=== PATIENT | female | born 1985 | race Caucasian/White ===

== ENCOUNTER 2019-10-01 21:50 | Observation (INO) | payer OTHER ==
[~2019-10-01] VITALS: Ht 154 cm; Wt 60.8 kg
[2019-10-02] MEDS: RINGERS SOLUTION,LACTATED 1,000 ML IV SCH ×4 (00:15→12:23)
[2019-10-02] MEDS: NIFEdipine 10 MG CAPSULE PO SCH ×3 (00:19→13:36)
[2019-10-02] MEDS ORDERED: BETAMETHASONE SOLUSPAN 6 MG/ML 5 ML VIAL IM ONE ×2 (08:00→19:00)
[2019-10-03] MEDS ORDERED: NIFEdipine 10 MG CAPSULE PO PRN
== END 2019-10-02 19:50 | disposition home or self-care (01) ==
LOC: 4S 21:50
PROVIDERS: ADMIT Obstetrics & Gynecology; ATTEND Obstetrics & Gynecology
DX: O32.1XX1 Maternal care for breech presentation, fetus 1 (principal); O46.93 Antepartum hemorrhage, unspecified, third trimester; O62.9 Abnormality of forces of labor, unspecified; O09.523 Supervision of elderly multigravida, third trimester; Z3A.37 37 weeks gestation of pregnancy
CPT/HCPCS: 36415; 59025; 76811; 81001; 89060; 96372; G0378 ×2; J0702; J7120 ×2

== ENCOUNTER 2019-10-23 00:14 | Observation (INO) | payer OTHER ==
[~2019-10-23] VITALS: Ht 154.9 cm; Wt 57.2 kg
[2019-10-23 03:00] LABS: BASOPHILS % (AUTO) 0.5 % (0.0-2.0); EOSINOPHILS % (AUTO) 0.2 % (1.0-6.0); HEMATOCRIT 34.4 % (36-46); HEMOGLOBIN 11.4 g/dL (12.0-16.0); LYMPHOCYTES # (AUTO) 1.4 K/uL (1.0-4.8); LYMPHOCYTES % (AUTO) 14.5 % (22.0-44.0); MEAN CORPUSCULAR HEMOGLOBIN 27.7 pg (26.0-34.0); MEAN CORPUSCULAR HGB CONC 33.1 G/dL (31.0-37.0); MEAN CORPUSCULAR VOLUME 84 fL (80-100); MONOCYTES # (AUTO) 0.3 K/uL (0.1-1.0); MONOCYTES % (AUTO) 2.5 % (2.0-9.0); NEUTROPHILS # (AUTO) 8.2 K/uL (1.8-7.7); NEUTROPHILS % (AUTO) 82.3 % (40.0-70.0); PLATELET COUNT (AUTO)-OB 210 K/uL (150-450); RED BLOOD CELL COUNT(AUTO) 4.13 MIL/uL (4.00-5.20); RED CELL DISTRIBUTION WIDTH 14.1 % (11.5-14.5)
[2019-10-23 03:09] LABS: ANION GAP 13 mmol/L (8-16); CALCIUM, TOTAL 8.5 mg/dL (8.8-10.5); CARBON DIOXIDE 21 mmol/L (22-29); CHLORIDE 103 mmol/L (98-107); CREATININE 0.75 mg/dL (0.60-1.30); GLOMERULAR FILTR. RATE CALC > 60 mL/min (>60); GLUCOSE,RANDOM 61 mg/dL (70-110); POTASSIUM 3.9 mmol/L (3.5-5.1); SODIUM SERUM 137 mmol/L (136-145); UREA NITROGEN, BLOOD 9 mg/dL (7-18)
[2019-10-23 03:15] LABS: ALANINE AMINOTRANSFERASE 88 U/L (12-78); ALBUMIN 2.1 g/dL (3.4-5.0); ALKALINE PHOSPHATASE 122 U/L (46-116); ASPARTATE AMINOTRANSFERASE 60 U/L (15-37); BILIRUBIN,TOTAL 0.2 mg/dL (0.1-1.0); TOTAL PROTEIN, SERUM 5.9 g/dL (6.4-8.2); URIC ACID 5.6 mg/dL (2.6-7.2)
[2019-10-23] MEDS: RINGERS SOLUTION,LACTATED 1,000 ML IV SCH ×2 (03:40→03:51)
[2019-10-23] MEDS ORDERED: Nifedipine PO (05:16)
[2019-10-23 05:17] VITALS: BP 138/88
[2019-10-23] MEDS ORDERED: PREN-68 PO (05:25)
== END 2019-10-23 07:00 | disposition home or self-care (01) ==
LOC: 4S 00:14
PROVIDERS: ADMIT Obstetrics & Gynecology; ATTEND Obstetrics & Gynecology
DX: O26.893 Other specified pregnancy related conditions, third trimester (principal); R03.0 Elevated blood-pressure reading, without diagnosis of hypertension; O24.419 Gestational diabetes mellitus in pregnancy, unspecified control; Z3A.37 37 weeks gestation of pregnancy; Z87.891 Personal history of nicotine dependence
CPT/HCPCS: 36415; 59025; 80053; 81001; 84550; 85025; G0378; J7120

== ENCOUNTER 2019-10-26 12:39 | Inpatient (IN) | payer OTHER ==
[~2019-10-26] VITALS: Ht 154 cm; Wt 58.1 kg
[~2019-10-26 12:39] MED LIST: Nifedipine PO; PREN-68 PO; RINGERS SOLUTION,LACTATED 1,000 ML IV ONE
[2019-10-26] MEDS ORDERED: NIFE10 PO (12:42)
[2019-10-26] MEDS ORDERED: CITRIC ACID/SODIUM CITRATE 30 ML SOLUTION UDCUP PO ONE (12:45)
[2019-10-26] MEDS ORDERED: METOCLOPRAMIDE HCL 5 MG/ML 2 ML VIAL IVP ONE (12:45)
[2019-10-26 13:14] VITALS: BP 153/97
[2019-10-26] MEDS ORDERED: FentaNYL CITRATE-PF 100 MCG/2 ML VIAL ONE (13:34)
[2019-10-26] MEDS ORDERED: MORPHINE SULFATE/PF 1 MG/ML 10 ML AMP ONE (13:34)
[2019-10-26] MEDS ORDERED: ACETAMINOPHEN 1000 MG/ISO-OSM 100 ML IV ONE (13:36)
[2019-10-26] MEDS ORDERED: BUPIVACAINE HCL/DEX-WATER/PF 0.75% 2 ML AMP ONE (13:36)
[2019-10-26] MEDS ORDERED: ONDANSETRON HCL 4 MG/2 ML VIAL IVP PRN ×2 (13:45→14:00)
[2019-10-26] MEDS ORDERED: FentaNYL CITRATE-PF 100 MCG/2 ML VIAL IVP PRN ×2 (13:45→14:00)
[2019-10-26] MEDS ORDERED: DiphenhydrAMINE HCL 50 MG/ML VIAL IVP PRN (13:45)
[2019-10-26] MEDS ORDERED: MORPHINE SULFATE 10 MG/ML SYRINGE IVP PRN (13:45)
[2019-10-26] MEDS ORDERED: NALBUPHINE HCL 10 MG/ML VIAL IVP PRN ×2 (13:45)
[2019-10-26] MEDS ORDERED: NALOXONE HCL 0.4 MG/ML VIAL IVP PRN (13:45)
[2019-10-26 13:54] LABS: BASOPHILS % (AUTO) 0.4 % (0.0-2.0); EOSINOPHILS % (AUTO) 0.2 % (1.0-6.0); HEMATOCRIT 39.9 % (36-46); HEMOGLOBIN 12.9 g/dL (12.0-16.0); LYMPHOCYTES # (AUTO) 1.4 K/uL (1.0-4.8); LYMPHOCYTES % (AUTO) 13.8 % (22.0-44.0); MEAN CORPUSCULAR HGB CONC 32.3 G/dL (31.0-37.0); MEAN CORPUSCULAR VOLUME 84 fL (80-100); MONOCYTES # (AUTO) 0.3 K/uL (0.1-1.0); MONOCYTES % (AUTO) 2.8 % (2.0-9.0); NEUTROPHILS # (AUTO) 8.4 K/uL (1.8-7.7); NEUTROPHILS % (AUTO) 82.8 % (40.0-70.0); PLATELET COUNT (AUTO) 303 K/uL (150-450); RED BLOOD CELL COUNT(AUTO) 4.78 MIL/uL (4.00-5.20); RED CELL DISTRIBUTION WIDTH 14.2 % (11.5-14.5)
[2019-10-26 14:03] LABS: ANION GAP 9 mmol/L (8-16); CARBON DIOXIDE 26 mmol/L (22-29); CHLORIDE 101 mmol/L (98-107); CREATININE 0.93 mg/dL (0.60-1.30); GLOMERULAR FILTR. RATE CALC > 60 mL/min (>60); GLUCOSE,RANDOM 71 mg/dL (70-110); SODIUM SERUM 136 mmol/L (136-145); UREA NITROGEN, BLOOD 12 mg/dL (7-18)
[2019-10-26 14:08] LABS: ALANINE AMINOTRANSFERASE 121 U/L (12-78); ALBUMIN 2.3 g/dL (3.4-5.0); ALKALINE PHOSPHATASE 153 U/L (46-116); ASPARTATE AMINOTRANSFERASE 76 U/L (15-37); BILIRUBIN,TOTAL 0.2 mg/dL (0.1-1.0); TOTAL PROTEIN, SERUM 6.6 g/dL (6.4-8.2); URIC ACID 6.2 mg/dL (2.6-7.2)
[2019-10-26 14:22] LABS: CALCIUM, TOTAL 9.2 mg/dL (8.8-10.5)
[2019-10-26] MEDS ORDERED: INFLUENZA VIRUS VACCINE QVS 2019-20 (3YR+)/PF 60 MCG/0.5 ML SYRINGE IM ONE (14:45)
[2019-10-26] MEDS ORDERED: TRANEXAMIC ACID 1,000 MG in DEXTROSE 5%-WATER 50 ML IV ONE (15:00)
[2019-10-26] MEDS ORDERED: ACETAMINOPHEN/CODEINE 300-30 MG TABLET PO PRN ×2 (15:15)
[2019-10-26] MEDS ORDERED: LANOLIN 7 GM OINTMENT TP PRN (15:15)
[2019-10-26 15:24] LABS: APPEARANCE,URINE CLEAR (CLEAR); BILIRUBIN,URINE NEGATIVE (NEGATIVE); GLUCOSE, URINE (UA) NEGATIVE (NEGATIVE); KETONES,URINE NEGATIVE (NEGATIVE); LEUKOCYTE ESTERASE ,URINE TRACE (NEGATIVE); NITRATE,URINE NEGATIVE (NEGATIVE); OCCULT BLOOD,URINE NEGATIVE (NEGATIVE); PH,URINE 7.5 (5.0-8.0); PROTEIN,URINE NEGATIVE (NEGATIVE); UROBILINOGEN,URINE 0.2 mg/dL (<=1.0)
[2019-10-26 15:25] LABS: CREATININE,URINE RANDOM 25.3 mg/dL (30.0-125.0)
[2019-10-26 15:47] LABS: BACTERIA,URINE Few /HPF (None Seen); RBC,URINE None Seen /HPF (0-2); SQUAMOUS EPITHELIAL CELL,UR Few /LPF (None Seen); WBC,URINE 0-2 /HPF (0-5)
[2019-10-26] MEDS: DEXTROSE 5%-0.45% SODIUM CHL 1,000 ML IV SCH (16:49)
[2019-10-26] MEDS ORDERED: MAGNESIUM SULFATE 500 ML IV ONE (17:45)
[2019-10-26] MEDS ORDERED: CALCIUM GLUCONATE 100 MG/ML 10 ML IVP PRN ×2 (17:45→19:45)
[2019-10-26 19:45] LABS: BASOPHILS % (AUTO) 0.3 % (0.0-2.0); EOSINOPHILS % (AUTO) 0 % (1.0-6.0); HEMATOCRIT 33.7 % (36-46); HEMOGLOBIN 10.9 g/dL (12.0-16.0); LYMPHOCYTES # (AUTO) 0.7 K/uL (1.0-4.8); LYMPHOCYTES % (AUTO) 3.5 % (22.0-44.0); MEAN CORPUSCULAR HGB CONC 32.4 G/dL (31.0-37.0); MEAN CORPUSCULAR VOLUME 83 fL (80-100); MONOCYTES # (AUTO) 0.5 K/uL (0.1-1.0); MONOCYTES % (AUTO) 2.6 % (2.0-9.0); NEUTROPHILS # (AUTO) 19.1 K/uL (1.8-7.7); NEUTROPHILS % (AUTO) 93.6 % (40.0-70.0); PLATELET COUNT (AUTO)-OB 270 K/uL (150-450); RED BLOOD CELL COUNT(AUTO) 4.04 MIL/uL (4.00-5.20); RED CELL DISTRIBUTION WIDTH 14.9 % (11.5-14.5)
[2019-10-26] MEDS ORDERED: OXYGEN THERAPY IH SCH ×2 (20:00)
[2019-10-26] MEDS: KETOROLAC TROMETHAMINE 30 MG/ML VIAL IVP SCH (20:11)
[2019-10-26] MEDS: ACETAMINOPHEN 1000 MG/ISO-OSM 100 ML IV SCH (20:17)
[2019-10-26] MEDS: MAGNESIUM HYDROXIDE SUSPENSION 30 ML UDCUP PO SCH (21:00)
[2019-10-27] MEDS: DEXTROSE 5%-0.45% SODIUM CHL 1,000 ML IV SCH ×2 (00:25→12:14)
[2019-10-27] MEDS: KETOROLAC TROMETHAMINE 30 MG/ML VIAL IVP SCH (01:35)
[2019-10-27] MEDS: ACETAMINOPHEN 1000 MG/ISO-OSM 100 ML IV SCH (01:37)
[2019-10-27] MEDS: NIFEdipine 10 MG CAPSULE PO PRN ×2 (01:46→15:01)
[2019-10-27] MEDS ORDERED: MAGNESIUM SULFATE 500 ML IV SCH (06:00)
[2019-10-27] MEDS ORDERED: EPHEDrine SULFATE 50 MG/ML VIAL IM ONE (06:21)
[2019-10-27] MEDS ORDERED: ONDANSETRON HCL 4 MG/2 ML VIAL IVP ONE (06:21)
[2019-10-27] MEDS ORDERED: DEXAMETHASONE SOD PHOS 4 MG/ML VIAL IVP ONE (06:21)
[2019-10-27] MEDS ORDERED: 0.9% SODIUM CHLORIDE 10 ML VIAL IVP ONE (06:21)
[2019-10-27] MEDS ORDERED: IBUPROFEN 800 MG TABLET PO SCH (07:00)
[2019-10-27 08:07] LABS: BASOPHILS % (AUTO) 0.2 % (0.0-2.0); EOSINOPHILS % (AUTO) 0 % (1.0-6.0); HEMATOCRIT 31.4 % (36-46); HEMOGLOBIN 10.4 g/dL (12.0-16.0); LYMPHOCYTES # (AUTO) 1.5 K/uL (1.0-4.8); LYMPHOCYTES % (AUTO) 6.8 % (22.0-44.0); MEAN CORPUSCULAR HEMOGLOBIN 27.4 pg (26.0-34.0); MEAN CORPUSCULAR HGB CONC 33.1 G/dL (31.0-37.0); MEAN CORPUSCULAR VOLUME 83 fL (80-100); MONOCYTES # (AUTO) 0.8 K/uL (0.1-1.0); MONOCYTES % (AUTO) 3.5 % (2.0-9.0); NEUTROPHILS # (AUTO) 19.8 K/uL (1.8-7.7); PLATELET COUNT (AUTO)-OB 250 K/uL (150-450); RED BLOOD CELL COUNT(AUTO) 3.78 MIL/uL (4.00-5.20); RED CELL DISTRIBUTION WIDTH 14.6 % (11.5-14.5)
[2019-10-27 08:12] LABS: NEUTROPHILS % (AUTO) 89.5 % (40.0-70.0)
[2019-10-27] MEDS: MAGNESIUM HYDROXIDE SUSPENSION 30 ML UDCUP PO SCH ×2 (09:00→22:07)
[2019-10-27] MEDS: IBUPROFEN 600 MG TABLET PO SCH ×2 (13:15→20:25)
[2019-10-28] MEDS: IBUPROFEN 600 MG TABLET PO SCH ×4 (03:25→21:13)
[2019-10-28] MEDS: MAGNESIUM HYDROXIDE SUSPENSION 30 ML UDCUP PO SCH ×2 (09:25→21:11)
[2019-10-28] MEDS: NIFEdipine 10 MG CAPSULE PO PRN (09:55)
[2019-10-28] MEDS ORDERED: SENNA/DOCUSATE SODIUM 8.6-50 MG TABLET PO ONE (10:30)
[2019-10-28] MEDS ORDERED: GLYCERIN 2 GM RECTAL SUPPOSITORY [ADULT] PR ONE (19:15)
[2019-10-29] MEDS: IBUPROFEN 600 MG TABLET PO SCH ×2 (03:27→14:37)
[2019-10-29] MEDS: NIFEdipine 10 MG CAPSULE PO PRN ×2 (08:09→14:34)
[2019-10-29] MEDS ORDERED: IBUP-2070 PO (12:05)
== END 2019-10-29 19:25 | disposition home or self-care (01) | DRG 787 ==
LOC: 4S 12:39 → OBSVTOIN 12:39 → 4S 17:30
PROVIDERS: ADMIT Obstetrics & Gynecology; ATTEND Obstetrics & Gynecology
PROC: 10D00Z1 Extraction of Products of Conception, Low, Open Approach (ICD-10-PCS; principal; 2019-10-26)
DX: O40.3XX0 Polyhydramnios, third trimester, not applicable or unspecified (principal); O10.92 Unspecified pre-existing hypertension complicating childbirth; O32.1XX0 Maternal care for breech presentation, not applicable or unspecified; Z3A.37 37 weeks gestation of pregnancy; Z37.0 Single live birth
CPT/HCPCS: 82570; 83735; 84550; 86850; 86900; 86901; 87081; J0131; J0690; J1100; J1885; J2270; J2405; J2765; J3010; J3475; J3490; J7060; J7120